=== PATIENT | male | born 1950 | race African-American/Black ===

== ENCOUNTER 2020-05-28 14:56 | Outpatient (CLI) | payer OTHER ==
[2020-05-29 06:51] LABS: SARS-CoV-2 PCR by NAA Not Detected (NotDetected)
== END 2020-05-28 14:57 | disposition home or self-care (01) ==
LOC: CSHLAB 14:56
PROVIDERS: ATTEND Surgery
DX: Z20.822 Contact with and (suspected) exposure to COVID-19 (principal)
CPT/HCPCS: 87635; U0003; U0005

== ENCOUNTER 2020-05-29 08:06 | Day surgery (SDC) | payer OTHER ==
[2020-05-28 16:17] VITALS: BMI 25.7
[2020-05-29] MEDS ORDERED: Ketamine 50 MG/ML (10ML VIAL) ONE (10:09)
[2020-05-29] MEDS ORDERED: PROPOFOL 20 ML ONE ×2 (10:09→10:22)
[2020-05-29] MEDS ORDERED: Lidocaine 1% MPF 2 ML VIAL ONE (11:05)
== END 2020-05-29 11:40 | disposition home or self-care (01) ==
LOC: CSHSDC 08:06
PROVIDERS: ATTEND Internal Medicine Gastroenterology
PROC: 0DH63UZ Insertion of Feeding Device into Stomach, Percutaneous Approach (ICD-10-PCS; principal; 2020-05-29)
DX: R13.10 Dysphagia, unspecified (principal); K22.10 Ulcer of esophagus without bleeding; K44.9 Diaphragmatic hernia without obstruction or gangrene
CPT/HCPCS: 36416; J2704